=== PATIENT | female | born 1960 | race Caucasian/White ===

== ENCOUNTER 2017-02-28 01:52 | Observation (INO) | payer OTHER ==
[~2017-02-28] VITALS: Ht 160 cm; Wt 54.9 kg
[2017-02-28 01:53] VITALS: BP 116/71
[2017-02-28 02:59] LABS: ABSOLUTE NEUTROPHILS 4.2 thou/uL (1.4-8.2); BASOPHILS 1.4 % (0.0-2.0); EOSINOPHILS 1.2 % (0.0-3.0); HEMATOCRIT 43.6 % (37.0-47.0); LYMPHOCYTES 41.5 % (24.0-44.0); MCH 33.5 pg (26.0-34.0); MCHC 34.4 g/dL (28.0-37.0); MCV 97.6 fL (80.0-100.0); MONOCYTES 8.8 % (1.0-8.0); PLATELET COUNT 256 thou/uL (150-400); POLYS 47.1 % (36.0-66.0); RBC 4.47 mil/uL (4.20-5.00); RDW 15.9 % (10.5-14.5); WBC 8.8 thou/uL (4.0-11.0)
[2017-02-28 03:05] LABS: MANUAL DIFF NO
[2017-02-28 03:08] LABS: CALCIUM 8.3 mg/dL (8.5-10.1); CREATININE 0.6 mg/dL (0.6-1.0); POTASSIUM 3.9 mmol/L (3.5-5.1)
[2017-02-28 03:12] LABS: APTT 26.8 Seconds (24.5-32.8); PROTIME 9.8 Seconds (9.3-11.4)
[2017-02-28 03:49] LABS: AMP/METHAMP Negative (Negative); BARBITURATES Negative (Negative); BENZODIAZEPINES Negative (Negative); COCAINE Negative (Negative); METHADONE Negative (Negative); OPIATES Negative (Negative); PCP Negative (Negative); THC Negative (Negative)
[2017-02-28 04:26] VITALS: BP 106/64
[2017-02-28 04:39] VITALS: BP 117/82
[2017-02-28 07:40] VITALS: BP 96/61
[2017-02-28 08:00] VITALS: BP 96/61
[2017-02-28] MEDS ORDERED: BREO ELLIPTA 11 EACH IH (10:11)
[2017-02-28] MEDS ORDERED: ALBUTEROL2.5 MG/31 INH (10:22)
[2017-02-28] MEDS ORDERED: NEURONTIN600 MG PO (10:23)
[2017-02-28] MEDS ORDERED: CRESTOR10 MG PO (10:23)
[2017-02-28] MEDS ORDERED: HIZENTRA10 GM/50 M SQ (10:25)
[2017-02-28] MEDS ORDERED: PROTONIX40 M4 PO (10:26)
[2017-02-28] MEDS ORDERED: NASONEX17 GM NASAL (10:26)
[2017-02-28] MEDS ORDERED: HYDROCODON-ACE1 EAC7 PO (12:39)
[2017-02-28 13:07] VITALS: BP 96/61
== END 2017-02-28 14:18 | disposition home or self-care (01) ==
LOC: ER 01:52 → 4W 04:09 → EROBS 04:09 → 4W 04:27
PROVIDERS: Emergency Medicine
DX: R41.82 Altered mental status, unspecified (principal); F10.129 Alcohol abuse with intoxication, unspecified; R55 Syncope and collapse; K21.9 Gastro-esophageal reflux disease without esophagitis; D83.9 Common variable immunodeficiency, unspecified; J45.909 Unspecified asthma, uncomplicated; F17.210 Nicotine dependence, cigarettes, uncomplicated; Z88.8 Allergy status to other drugs, medicaments and biological substances; Z88.0 Allergy status to penicillin